=== PATIENT | male | born 1970 | race Caucasian/White ===

== ENCOUNTER 2024-11-13 19:39 | Emergency (ER) | payer OTHER, SELFPAY ==
[2024-11-13 19:46] VITALS: BP 129/86; PULSE 114; TEMP 36.9; O2SAT 98; BMI 25.7
--- NOTE | 2024-11-13 20:03 | ED_ITS ---
HPI - Skin/Abscess/Foreign Bdy General Chief complaint: Skin/Abscess/Foreign Body Stated complaint: spider bite Time Seen by Provider: 11/13/24 19:53 Source: patient Limitations: no limitations History of Present Illness HPI narrative: ? spider bite left wrist. About 5 days ago. States he punctured it with his knife tip 3 days ago with resultant while exudative drainage and the swelling of his hand has decreased in size. Demonstrates how he had difficulty before moving fingers on the left hand but no longer. No fever or systemic symptoms Related Data Allergies Allergy/AdvReac Type Severity Reaction Status Date / Time No Known Drug Allergies Allergy Verified 11/13/24 19:52 Review of Systems ROS Status of ROS 10 or more systems reviewed and unremark able except as noted in history and below PFSH PFSH Social History Little interest or pleasure in doing things: not at all Feeling down, depressed, or hopeless: not at all Exam Constitutional Vital Signs, click to edit/add: Last Vital Signs Temp 98.5 F 11/13/24 21:27 Pulse 88 11/13/24 21:27 Resp 14 11/13/24 21:27 BP 125/77 11/13/24 21:27 Pulse Ox 100 11/13/24 21:27 O2 Del Method Room Air 11/13/24 21:27 Common normals: no apparent distress, average body habitus, oriented x3, no limitations, healthy appearing, alert and well nourished [facility] Common normals: normocephalic Eye Common normals: PERRL, EOMs intact bilaterally and conjunctivae normal Respiratory Common normals: normal respiratory effort, no retractions, no use of accessory muscles and clear to auscultation bilaterally Cardio Common normals: regular rate, regular rhythm, S1 normal heart sound and S2 normal heart sound Extremity Other: dorsum left wrist with focal raised abscess with thick creamy exudate that is expressible. Mild swelling of the wrist and dorsum of the hand. FROM of his fingers Neuro Common normals: oriented x3, CN's II-XII intact bilaterally and moves all extremities Psych Appearance: grossly normal Course Vital Signs Vital signs: Vital Signs Temperature 98.5 F 11/13/24 19:46 Pulse Rate 114 H 11/13/24 19:46 Respiratory Rate 20 11/13/24 19:46 Blood Pressure 129/86 11/13/24 19:46 Pulse Oximetry 98 11/13/24 19:46 Oxygen Delivery Method Room Air 11/13/24 19:46 Temperature 98.5 F 11/13/24 21:27 Pulse Rate 88 11/13/24 21:27 Respiratory Rate 14 11/13/24 21:27 Blood Pressure 125/77 11/13/24 21:27 Pulse Oximetry 100 11/13/24 21:27 Oxygen Delivery Method Room Air 11/13/24 21:27 MDM - Skin/Abscess/Foreign Bdy MDM Narrative Medical decision making narrative: patient presents with MRSA appearing abscess dorsum left wrist. It is draining and I'm able to express exudate. Therefore it was not incised. Treated with IV clindamycin. WBC mildly elevated as is the CRP. Patient discharged home. He admits since it has been draining the swelling has gone down. will have him soak his wrist at home and plan follow up with his doctor in the next couple of days for recheck. Discharged with a prescription of Clindamycin Lab Data Labs: Lab Results 11/13/24 Range/Units 20:05 WBC 11.4 H (4.0-11.0) 10^3/uL RBC 4.52 L (4.70-6.10) 10^6/uL Hgb 14.6 (14.0-18.0) g/dL Hct 41.2 L (42.0-54.0) % MCV 91.2 (80.0-94.0) fL MCH 32.3 (25.9-34.0) pg MCHC 35.4 H (29.9-35.2) g/dL RDW 11.8 (11.0-15.0) % Plt Count 415 (150-450) 10^3/uL MPV 8.9 L (9.5-13.5) fL Neut % (Auto) 73.6 (43.0-75.0) % Lymph % (Auto) 14.7 L (20.5-60.0) % Saunders % (Auto) 8.7 (1.7-12.0) % Eos % (Auto) 2.2 (0.9-7.0) % Baso % (Auto) 0.5 (0.2-2.0) % Neut # (Auto) 8.4 H (1.4-6.5) 10^3/uL Lymph # (Auto) 1.7 (1.2-3.8) 10^3/uL Saunders # (Auto) 1.0 H (0.3-0.8) 10^3/uL Eos # (Auto) 0.3 (0.0-0.7) 10^3/uL Baso # (Auto) 0.1 (0.0-0.1) 10^3/uL Abs Immat Gran (auto) 0.03 (0.00-0.03) 10^3/uL Imm/Tot Granulo (auto) 0.3 (0.0-0.5) % Sodium 138 (136-145) mmol/L Potassium 3.7 (3.5-5.1) mmol/L Chloride 102 (98-107) mmol/L Carbon Dioxide 28.2 (21.0-32.0) mmol/L Anion Gap 11.5 BUN 13.0 (7.0-18.0) mg/dL Creatinine 0.66 L (0.70-1.30) mg/dL Est GFR ( Amer) >60 (>=60 mL/min/1.73m^2) Est GFR (Non-Af Amer) >60 (>=60 mL/min/1.73m^2) BUN/Creatinine Ratio 19.7 Glucose 101 (74-106) mg/dL Calcium 8.9 (8.5-10.1) mg/dL C-Reactive Protein 2.09 H (<=0.50) mg/dL Discharge Plan Discharge Chief Complaint: Skin/Abscess/Foreign Body Clinical Impression: Abscess of skin of left wrist Patient Disposition: Home, Self-Care Print Language: Telugu Instructions: Abscess (ED) Additional Instructions: have wound rechecked in next couple of days. Return if increased swelling or pain Referrals: Tasneem Vega NP [Primary Care Provider, [facility]] - 1 week Discharge Date/Time: 11/13/24 21:29
[2024-11-13] MEDS: 0.9 % SODIUM CHLORIDE 1,000 ML 999 ML IV (20:08)
[2024-11-13] MEDS: CLINDAMYCIN PHOSPHATE/D5W 900 MG/50 ML PREMIX 100 MG IV (20:09)
[2024-11-13 20:17] LABS: Basophils Absolute Auto 0.1 10^3/uL (0.0-0.1); Basophils Percent Auto 0.5 % (0.2-2.0); Eosinophils Absolute Auto 0.3 10^3/uL (0.0-0.7); Eosinophils Percent Auto 2.2 % (0.9-7.0); Hematocrit 41.2 % (42.0-54.0); Hemoglobin 14.6 g/dL (14.0-18.0); Immature Granulocytes Abs Auto 0.03 10^3/uL (0.00-0.03); Immature Granulocytes Pct Auto 0.3 % (0.0-0.5); Lymphocytes Absolute Auto 1.7 10^3/uL (1.2-3.8); Lymphocytes Percent Auto 14.7 % (20.5-60.0); Mean Corpuscular HGB Conc 35.4 g/dL (29.9-35.2); Mean Corpuscular Hemoglobin 32.3 pg (25.9-34.0); Mean Corpuscular Volume 91.2 fL (80.0-94.0); Mean Platelet Volume 8.9 fL (9.5-13.5); Monocytes Percent Auto 8.7 % (1.7-12.0); Neutrophils Absolute Auto 8.4 10^3/uL (1.4-6.5); Neutrophils Percent Auto 73.6 % (43.0-75.0); Platelet Count 415 10^3/uL (150-450); Red Blood Count 4.52 10^6/uL (4.70-6.10); Red Cell Distribution Width 11.8 % (11.0-15.0); White Blood Count 11.4 10^3/uL (4.0-11.0)
[2024-11-13 20:27] LABS: Anion Gap 11.5; BUN Creatinine Ratio 19.7; C Reactive Protein 2.09 mg/dL (<=0.50); Calcium 8.9 mg/dL (8.5-10.1); Carbon Dioxide 28.2 mmol/L (21.0-32.0); Chloride 102 mmol/L (98-107); Estimated GFR (African America >60 (>=60 mL/min/1.73m^2); Estimated GFR (Non-African Ame >60 (>=60 mL/min/1.73m^2); Glucose 101 mg/dL (74-106); Potassium 3.7 mmol/L (3.5-5.1); Sodium 138 mmol/L (136-145)
[2024-11-13] MEDS: CLINDAMYCIN HCL 150 MG CAPSULE 300 MG PO (21:19)
[2024-11-13 21:27] VITALS: BP 125/77; PULSE 88; TEMP 36.9; O2SAT 100
== END 2024-11-13 21:29 | disposition home or self-care (01) ==
PROVIDERS: Emergency Provider Internal Medicine; PCP Nurse Practitioner
DX: L02.414 Cutaneous abscess of left upper limb (principal)
CPT/HCPCS: 36415; 80048; 85025; 86140; 96365; 99284; J0736